=== PATIENT | female | born 1985 | race American Indian/Alaskan Native ===

== ENCOUNTER 2021-06-14 13:54 | Emergency (ER) | payer SELFPAY ==
[2021-06-14] MEDS ORDERED: IBUPROFEN 800 MG TAB PO ONE (14:34)
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
[2021-06-14 18:24] VITALS: BP 129/79
== END 2021-06-14 18:24 | disposition home or self-care (01) ==
LOC: ED 13:54
DX: S13.4XXA Sprain of ligaments of cervical spine, initial encounter (principal); S66.912A Strain of unspecified muscle, fascia and tendon at wrist and hand level, left hand, initial encounter; Z98.51 Tubal ligation status; Z79.899 Other long term (current) drug therapy; V89.2XXA Person injured in unspecified motor-vehicle accident, traffic, initial encounter; Y93.89 Activity, other specified; Y92.488 Other paved roadways as the place of occurrence of the external cause; Y99.8 Other external cause status
CPT/HCPCS: 72040; 99283